=== PATIENT | female | born 1995 | race Caucasian/White ===

== ENCOUNTER 2019-11-16 11:18 | Emergency (ER) | payer OTHER ==
[~2019-11-16] VITALS: Ht 160 cm; Wt 79.4 kg
[2019-11-16 11:28] VITALS: BP_SYST 121; BP_SYST 131; BP_DIAS 81; BP_DIAS 96
[2019-11-16] MEDS ORDERED: ZOFRAN ODT SL STA (12:36)
[2019-11-16] MEDS ORDERED: ZOFRAN ODT ONE (12:41)
--- NOTE | 2019-11-16 12:46 | ER.PDOC ---
General Chief Complaint: less 20 wks Stated Complaint: UNDER 20 WEEKS TRAVEL OUT OF US: No Time seen by MD: 12:38 Source: patient Exam Limitations: no limitations History of Present Illness Initial Comments Patient is 11 weeks and vomited 6 times [place] a [address] station this morning. The last time she vomited, it was mixed with blood. She went to [facility] and had labs done. She was told to come here and have an OB sonogram done. She told me that she had one done last week in [place] and baby was 10 weeks and 5 days. She is on her way from [place] to [place]. She denies abdominal pain or vaginal bleeding. She still has nausea otherwise no other symptoms. She was started on Aspirin by a cook mess in [place]. Timing/Duration: 4-6 hours Severity: mild Associated Symptoms: other (nausea) Past Medical History Medical History: no pertinent history Surgical History: tonsillectomy Social History Alcohol Use: none Drug Use: none Review of Systems Constitutional: no symptoms reported Respiratory: no symptoms reported Cardiovascular: no symptoms reported Gastrointestinal: see HPI Genitourinary: no symptoms reported All Other Systems: Reviewed and Negative Physical Exam General Appearance: No Apparent Distress, WD/WN Respiratory: chest non-tender, lungs clear, normal breath sounds, no respiratory distress CVS: reg rate & rhythm, no murmur, no gallop, pulses nml, nml capillary refill Gastrointestinal: Normal Bowel Sounds, No Organomegaly, No Pulsatile Mass, Non Tender Back: Normal Inspection Extremities: Normal Range of Motion Neurologic/Psychiatric: grocery clerk II-XII NML as Tested Skin: Normal Color Results/Orders Results/Orders Orders - CHARY REYES MD Ondansetron (Zofran Odt) (11/16/19 12:36) Vital Signs Date Time Temp Pulse Resp B/P (MAP) Pulse Ox O2 Delivery O2 Flow Rate FiO2 11/16/19 11:28 98.0 91 20 11/16/19 11:28 98.0 86 20 100 11/16/19 11:28 98.0 86 20 131/96 (108) 100 Room Air Progress Progress Discussed with Dr. Dougherty about this patient. He advised that patient should stop ASA as there is no indication. Patient had labs already done at [facility] and she has a UTI, Her hemoglobin is 12.5 She received Zofran for nausea and feeling better. She will be discharged to follow up with her OB Doctor in 2-3 days. Course Sepsis Screening Results: Posi: POSITIVE SEPSIS RISK Vitals & review Data Vital Sign - Last 24 Hours 11/16/19 11/16/19 11/16/19 11:28 11:28 11:28 Temp 98.0 98.0 98.0 Pulse 86 86 91 Resp 20 20 20 B/P (MAP) 131/96 (108) Pulse Ox 100 100 O2 Delivery Room Air O2 Sat by Pulse Oximetry: 100 Departure Time of Disposition: 12:49 Disposition: 01 HOME, SELF-CARE Impression: Primary Impression: Nausea and vomiting during prior to 22 weeks gestation Additional Impressions: UTI (urinary tract infection) Nancy-Hyatt tear Condition: Stable Referrals: PCP,UNKNOWN (PCP) PRIMARY CARE PROVIDER Additional Instructions: Zofran ODT Macrobid Stop Aspirin F/U with your OB Doctor in 2-3 days Return or stop at any nearest ED if worsening symptoms or concerns. Duration or Time Spent with Pa: 20 mins Problem Qualifiers Additional Impressions: UTI (urinary tract infection) Urinary tract infection type: site unspecified Hematuria presence: with hematuria Qualified Codes: N39.0 - Urinary tract infection, site not specified; R31.9 - Hematuria, unspecified CHARY REYES MD Nov 16, 2019 12:46
== END 2019-11-16 13:05 | disposition home or self-care (01) ==
LOC: ER 11:18
DX: O99.611 Diseases of the digestive system complicating pregnancy, first trimester (principal); O23.41 Unspecified infection of urinary tract in pregnancy, first trimester; O21.9 Vomiting of pregnancy, unspecified; K22.6 Gastro-esophageal laceration-hemorrhage syndrome; Z3A.11 11 weeks gestation of pregnancy
CPT/HCPCS: 99283; Q0162